=== PATIENT | male | born 1945 | race Caucasian/White ===

== ENCOUNTER 2017-05-24 12:35 | Inpatient (IN) | payer MEDICARE, MEDICAID ==
[~2017-05-24] VITALS: Ht 167.6 cm; Wt 85.3 kg
[2017-05-24] MEDS ORDERED: CLON0.5T4 PO (12:49)
[2017-05-24] MEDS ORDERED: METO-296 PO (12:49)
[2017-05-24] MEDS ORDERED: ALBUTEROL (0.083%) 2.5MG/3ML NEB HHN STA (13:10)
[2017-05-24] MEDS ORDERED: IPRATROPIUM BROMIDE (0.02%) 0.5MG/2.5ML NEB HHN STA (13:10)
[2017-05-24] MEDS ORDERED: METHYLPREDNISOLONE SOD SUCC 125 MG/2 ML VIAL IV STA (13:10)
[2017-05-24] MEDS ORDERED: MAGNESIUM 2 G PREMIX 50 ML IV ONE (13:15)
[2017-05-24] MEDS ORDERED: ONDANSETRON HCL 4MG/2ML VIAL IV ONE (14:00)
[2017-05-24] MEDS ORDERED: MORPHINE SULFATE 4 MG/ML CPJ (NOT FOR IM USE) IV ONE (14:00)
[2017-05-24 14:37] LABS: CHLORIDE 108 mEq/L (98-107); PROTHROMBIN TIME 10.7 sec
[2017-05-24 14:38] LABS: BASOPHILS % 0.3 % (0.0-2.0); EOSINOPHILS % 1.5 % (0.0-5.0); HEMATOCRIT. 40.5 % (42.0-52.0); HEMOGLOBIN. 13.5 g/dL (14.0-18.0); LYMPHOCYTES % 14.4 % (20.0-50.0); MEAN CORPUSCULAR VOLUME 87.1 fL (80.0-94.0); MEAN PLATELET VOLUME 10.1 fl (7.4-10.4); MONOCYTES % 4.4 % (2.0-8.0); NEUTROPHILS % 79.4 % (40.0-76.0); PLATELET 142 x1000/uL (130-400); RED BLOOD CELL COUNT 4.65 mill/uL (4.7-6.1); RED CELL DISTRIBUTION WIDTH 14.9 % (11.6-14.6)
[2017-05-24 14:43] LABS: CARBON DIOXIDE 25 mEq/L (21-32)
[2017-05-24] MEDS ORDERED: CEFTRIAXONE 1 G PREMIX 50 ML IV ONE (14:45)
[2017-05-24 14:46] LABS: TROPONIN I < 0.02 ng/mL (0.00-0.04)
[2017-05-24] MEDS ORDERED: SODIUM CHLORIDE 0.9% 1,000 ML IV ONE (14:49)
[2017-05-24] MEDS ORDERED: DOCUSATE SODIUM 100MG CAPSULE PO PRN (15:15)
[2017-05-24] MEDS ORDERED: LORAZEPAM 2MG/ML CPJ IV PRN (15:15)
[2017-05-24] MEDS ORDERED: IPRATROPIUM/ALBUTEROL 0.5-3(2.5)MG/3ML NEB INH PRN (15:15)
[2017-05-24] MEDS ORDERED: NITROGLYCERIN 0.4MG TABLET SL SL PRN (15:15)
[2017-05-24] MEDS ORDERED: DEXTROSE 50% WATER 50ML SYRINGE IV PRN (15:15)
[2017-05-24] MEDS ORDERED: GUAIFENESIN 200MG/10ML SUGAR FREE UDC PO PRN (15:15)
[2017-05-24] MEDS ORDERED: ACETAMINOPHEN 325MG TABLET PO PRN (15:15)
[2017-05-24] MEDS ORDERED: MAGNESIUM/ALUMINUM HYDROXIDE/SIMETHICONE 30ML UDC PO PRN (15:15)
[2017-05-24] MEDS ORDERED: DIPHENHYDRAMINE 50MG/ML VIAL IV PRN (15:15)
[2017-05-24] MEDS ORDERED: PIPERACILLIN/TAZ 3.375G PREMIX 50 ML IV SCH ×2 (15:15→21:15)
[2017-05-24] MEDS ORDERED: ONDANSETRON HCL 4MG/2ML VIAL IV PRN (15:15)
[2017-05-24] MEDS ORDERED: NA PHOS,M-B/NA PHOS,DI-BA ENEMA 118ML PR PRN (15:15)
[2017-05-24] MEDS: MORPHINE SULFATE 4 MG/ML CPJ (NOT FOR IM USE) IV PRN (17:43)
[2017-05-24] MEDS: BLOOD SUGAR DIAGNOSTIC STRIP TEST SCH ×2 (20:22→23:40)
[2017-05-24] MEDS ORDERED: PIPERACILLIN/TAZ 3.375G PREMIX 50 ML IV ONE (20:30)
[2017-05-24] MEDS: INSULIN LISPRO 100 UNITS/ML SUBCUT SCH ×2 (21:00→21:20)
[2017-05-24] MEDS ORDERED: VANCOMYCIN 1,500 MG in DEXT 5% WATER 250 ML IV SCH (21:00)
[2017-05-24] MEDS ORDERED: VANCOMYCIN 1 G PREMIX 200 ML IV NR (21:11)
[2017-05-24 21:39] VITALS: BP 126/56
[2017-05-24 22:38] VITALS: BP 126/56
[2017-05-24 23:10] LABS: CREATINE KINASE 60 IU/L (39-308); TROPONIN I < 0.02 ng/mL (0.00-0.04)
[2017-05-24] MEDS: ENOXAPARIN 40MG/0.4ML SYR SUBCUT SCH (23:38)
[2017-05-24] MEDS: FAMOTIDINE 20MG/2ML VIAL IV SCH (23:38)
[2017-05-24] MEDS: METHYLPREDNISOLONE SOD SUCC 125 MG/2 ML VIAL IV SCH (23:39)
[2017-05-25] VITALS: BP 141/67
[2017-05-25] MEDS ORDERED: ZOLP10TA2 PO (01:00)
[2017-05-25] MEDS ORDERED: TAMS-11 PO (01:00)
[2017-05-25] MEDS ORDERED: OMEG1CAP17 PO (01:00)
[2017-05-25] MEDS ORDERED: TERA2CAP53 PO (01:00)
[2017-05-25] MEDS ORDERED: OLAN10TA3 PO (01:00)
[2017-05-25] MEDS ORDERED: FERR-63 PO (01:00)
[2017-05-25] MEDS ORDERED: METF500T3 PO (01:00)
[2017-05-25] MEDS ORDERED: TRIH5TAB2 PO (01:00)
[2017-05-25] MEDS ORDERED: ESOM40CA PO (01:00)
[2017-05-25] MEDS: PIPERACILLIN/TAZ 3.375G PREMIX 50 ML IV SCH ×4 (03:32→21:20)
[2017-05-25 03:49] VITALS: BP 125/56
[2017-05-25] MEDS: BLOOD SUGAR DIAGNOSTIC STRIP TEST SCH ×4 (06:22→21:09)
[2017-05-25] MEDS: INSULIN LISPRO 100 UNITS/ML SUBCUT SCH ×4 (06:22→21:00)
[2017-05-25] MEDS: METHYLPREDNISOLONE SOD SUCC 125 MG/2 ML VIAL IV SCH (06:22)
[2017-05-25] MEDS: MORPHINE SULFATE 4 MG/ML CPJ (NOT FOR IM USE) IV PRN ×3 (06:39→15:47)
[2017-05-25 07:10] LABS: CREATINE KINASE 50 IU/L (39-308); CREATINE KINASE MB FRACTION 2.6 ng/mL (0.5-3.6); TROPONIN I < 0.02 ng/mL (0.00-0.04)
[2017-05-25 08:00] VITALS: BP 119/61
[2017-05-25] MEDS: ASPIRIN 325MG EC TABLET PO SCH (08:24)
[2017-05-25] MEDS: FAMOTIDINE 20MG/2ML VIAL IV SCH ×2 (08:24→21:20)
[2017-05-25] MEDS: ZINC SULFATE 220 MG ( 50 ) CAPSULE PO SCH (08:24)
[2017-05-25] MEDS: GUAIFENESIN/DM 600MG/30MG ER TAB 12HR PO SCH ×2 (08:25→21:08)
[2017-05-25] MEDS: TRAMADOL 50MG TABLET PO PRN ×2 (08:45→21:39)
[2017-05-25 12:18] VITALS: BP 132/85
[2017-05-25] MEDS: VANCOMYCIN 1 G PREMIX 200 ML IV SCH (12:32)
[2017-05-25 16:26] VITALS: BP 124/57
[2017-05-25] MEDS ORDERED: VANCOMYCIN 1 G PREMIX 200 ML IV SCH (18:00)
[2017-05-25] MEDS ORDERED: METHYLPREDNISOLONE SOD SUCC 40 MG/ML VIAL IV SCH (18:00)
[2017-05-25 20:00] VITALS: BP 123/45
[2017-05-25] MEDS: ENOXAPARIN 40MG/0.4ML SYR SUBCUT SCH (21:09)
[2017-05-25] MEDS: IPRATROPIUM/ALBUTEROL 0.5-3(2.5)MG/3ML NEB HHN SCH (23:55)
[2017-05-26] VITALS: BP 142/58
[2017-05-26] MEDS: PIPERACILLIN/TAZ 3.375G PREMIX 50 ML IV SCH ×4 (03:22→21:26)
[2017-05-26 04:00] VITALS: BP 130/56
[2017-05-26] MEDS: MORPHINE SULFATE 4 MG/ML CPJ (NOT FOR IM USE) IV PRN ×3 (04:21→18:46)
[2017-05-26] MEDS: IPRATROPIUM/ALBUTEROL 0.5-3(2.5)MG/3ML NEB HHN SCH ×6 (04:34→21:05)
[2017-05-26] MEDS: VANCOMYCIN 1 G PREMIX 200 ML IV SCH (05:53)
[2017-05-26 07:03] LABS: BASOPHILS % 0.2 % (0.0-2.0); EOSINOPHILS % 0.9 % (0.0-5.0); HEMATOCRIT. 37.3 % (42.0-52.0); HEMOGLOBIN. 12.2 g/dL (14.0-18.0); LYMPHOCYTES % 17.3 % (20.0-50.0); MEAN CORPUSCULAR HEMOGLOBIN 28.5 pg (28.0-32.0); MEAN CORPUSCULAR VOLUME 86.9 fL (80.0-94.0); MEAN PLATELET VOLUME 10.4 fl (7.4-10.4); MONOCYTES % 5.7 % (2.0-8.0); NEUTROPHILS % 75.9 % (40.0-76.0); PLATELET 140 x1000/uL (130-400); RED CELL DISTRIBUTION WIDTH 15.3 % (11.6-14.6)
[2017-05-26] MEDS: INSULIN LISPRO 100 UNITS/ML SUBCUT SCH ×4 (07:06→21:33)
[2017-05-26] MEDS: BLOOD SUGAR DIAGNOSTIC STRIP TEST SCH ×4 (07:06→21:00)
[2017-05-26 08:00] VITALS: BP 121/55
[2017-05-26] MEDS ORDERED: METHYLPREDNISOLONE SOD SUCC 40 MG/ML VIAL IV SCH (09:00)
[2017-05-26] MEDS: ASPIRIN 325MG EC TABLET PO SCH (09:38)
[2017-05-26] MEDS: FAMOTIDINE 20MG/2ML VIAL IV SCH ×2 (09:38→21:26)
[2017-05-26] MEDS: ZINC SULFATE 220 MG ( 50 ) CAPSULE PO SCH (09:38)
[2017-05-26] MEDS: GUAIFENESIN/DM 600MG/30MG ER TAB 12HR PO SCH ×2 (09:38→21:33)
[2017-05-26 12:00] VITALS: BP 159/67
[2017-05-26 16:00] VITALS: BP 149/72
[2017-05-26 20:00] VITALS: BP 122/53
[2017-05-26] MEDS: ENOXAPARIN 40MG/0.4ML SYR SUBCUT SCH (21:32)
[2017-05-26] MEDS: ZOLPIDEM TARTRATE 5MG TABLET PO PRN (21:39)
[2017-05-27] VITALS (7 sets, daily range): BP systolic 146–174; BP diastolic 57–72
[2017-05-27] MEDS: IPRATROPIUM/ALBUTEROL 0.5-3(2.5)MG/3ML NEB HHN SCH ×9 (00:17→23:50)
[2017-05-27] MEDS: PIPERACILLIN/TAZ 3.375G PREMIX 50 ML IV SCH ×4 (03:17→20:02)
[2017-05-27] MEDS: VANCOMYCIN 1 G PREMIX 200 ML IV SCH (05:53)
[2017-05-27] MEDS: MORPHINE SULFATE 4 MG/ML CPJ (NOT FOR IM USE) IV PRN ×4 (06:12→21:05)
[2017-05-27] MEDS: INSULIN LISPRO 100 UNITS/ML SUBCUT SCH ×4 (06:29→21:09)
[2017-05-27] MEDS: BLOOD SUGAR DIAGNOSTIC STRIP TEST SCH ×4 (06:45→20:09)
[2017-05-27] MEDS: ZINC SULFATE 220 MG ( 50 ) CAPSULE PO SCH (08:19)
[2017-05-27] MEDS: ASPIRIN 325MG EC TABLET PO SCH (08:19)
[2017-05-27] MEDS: GUAIFENESIN/DM 600MG/30MG ER TAB 12HR PO SCH ×2 (08:19→20:00)
[2017-05-27] MEDS: TRAMADOL 50MG TABLET PO PRN ×2 (08:20→20:00)
[2017-05-27] MEDS: PREDNISONE 20MG TABLET PO SCH (08:20)
[2017-05-27] MEDS: CLONIDINE 0.1MG TABLET PO PRN (08:21)
[2017-05-27] MEDS: FAMOTIDINE 20MG/2ML VIAL IV SCH ×2 (08:21→20:01)
[2017-05-27] MEDS: ENOXAPARIN 40MG/0.4ML SYR SUBCUT SCH (20:02)
[2017-05-27] MEDS: ZOLPIDEM TARTRATE 5MG TABLET PO PRN (21:55)
[2017-05-28] VITALS: BP 172/67
[2017-05-28] MEDS ORDERED: VANCOMYCIN 1 G PREMIX 200 ML IV SCH
[2017-05-28] MEDS: CLONIDINE 0.1MG TABLET PO PRN ×2 (01:07→13:35)
[2017-05-28] MEDS: PIPERACILLIN/TAZ 3.375G PREMIX 50 ML IV SCH ×2 (02:14→09:12)
[2017-05-28 04:00] VITALS: BP 177/68
[2017-05-28] MEDS: BLOOD SUGAR DIAGNOSTIC STRIP TEST SCH ×2 (06:11→11:45)
[2017-05-28] MEDS: INSULIN LISPRO 100 UNITS/ML SUBCUT SCH ×2 (06:11→13:03)
[2017-05-28] MEDS: MORPHINE SULFATE 4 MG/ML CPJ (NOT FOR IM USE) IV PRN (06:15)
[2017-05-28 08:00] VITALS: BP_SYST 128; BP_SYST 142; BP_DIAS 65; BP_DIAS 94
[2017-05-28] MEDS: IPRATROPIUM/ALBUTEROL 0.5-3(2.5)MG/3ML NEB HHN SCH ×2 (08:19→12:14)
[2017-05-28] MEDS: ASPIRIN 325MG EC TABLET PO SCH (09:12)
[2017-05-28] MEDS: FAMOTIDINE 20MG/2ML VIAL IV SCH (09:12)
[2017-05-28] MEDS: GUAIFENESIN/DM 600MG/30MG ER TAB 12HR PO SCH (09:12)
[2017-05-28] MEDS: ZINC SULFATE 220 MG ( 50 ) CAPSULE PO SCH (09:12)
[2017-05-28] MEDS: PREDNISONE 20MG TABLET PO SCH (09:22)
[2017-05-28] MEDS: TRAMADOL 50MG TABLET PO PRN (09:22)
[2017-05-28] MEDS: METRONIDAZOLE 500MG TABLET PO SCH ×2 (10:40→14:14)
[2017-05-28] MEDS ORDERED: LEVOFLOXACIN 500MG TABLET PO SCH (11:00)
[2017-05-28 12:00] VITALS: BP 174/81
[2017-05-28] MEDS ORDERED: AMLODIPINE 10MG TABLET PO SCH (15:00)
[2017-05-28 15:32] VITALS: BP 148/72
[2017-05-28] MEDS ORDERED: ATORVASTATIN CALCIUM 20MG TABLET PO SCH (21:00)
== END 2017-05-28 16:20 | DRG 137 ==
LOC: ER 13:08 → 5WST 13:13 → SUPCPDRO 15:11 → EDBEDREQ 15:15 → EDBEDREQSVC 15:15 → ENRESERV 19:03
PROVIDERS: ADMIT Internal Medicine; ATTEND Internal Medicine
DX: J69.0 Pneumonitis due to inhalation of food and vomit (principal); J96.00 Acute respiratory failure, unspecified whether with hypoxia or hypercapnia; E44.1 Mild protein-calorie malnutrition; D63.8 Anemia in other chronic diseases classified elsewhere; E11.9 Type 2 diabetes mellitus without complications; I10 Essential (primary) hypertension; E78.5 Hyperlipidemia, unspecified; E86.0 Dehydration; M25.562 Pain in left knee; Z96.652 Presence of left artificial knee joint; G89.29 Other chronic pain; J44.1 Chronic obstructive pulmonary disease with (acute) exacerbation; J98.11 Atelectasis; Z79.4 Long term (current) use of insulin; Z86.73 Personal history of transient ischemic attack (TIA), and cerebral infarction without residual deficits; Z87.891 Personal history of nicotine dependence; Z79.899 Other long term (current) drug therapy; Z68.30 Body mass index [BMI] 30.0-30.9, adult; Z88.6 Allergy status to analgesic agent; Z88.8 Allergy status to other drugs, medicaments and biological substances
CPT/HCPCS: 36415; 71010; 71250; 80048; 80053; 80061; 80202; 82550; 82553; 82962; 83036; 83605; 83690; 83880; 84484; 85025; 85610; 87040; 92610; 93005; 93306; 93970; 94640; 94644; 94664; 96361; 96365; 96375; 96376; 97163; 97166; 99291; J0696; J1650; J1815; J2060; J2270; J2405; J2543; J2920; J2930; J3370; J3475; J3490; J7040; J7060; J7512; J7611; J7620

== ENCOUNTER 2018-10-28 08:32 | Inpatient (IN) | payer MEDICARE, MEDICAID ==
[~2018-10-28] VITALS: Ht 167.6 cm; Wt 77.1 kg
[~2018-10-28 08:32] MED LIST: CLON0.5T12 PO; ESOM40CA PO; FERR-63 PO; METF500T3 PO; METO-396 PO; OLAN10TA3 PO; OMEG1CAP17 PO; TAMS-11 PO; TERA2CAP4 PO; TRIH5TAB2 PO; ZOLP10TA2 PO
[2018-10-28] MEDS ORDERED: ACETAMINOPHEN 325MG TABLET PO STA (08:55)
[2018-10-28] MEDS ORDERED: SODIUM CHLORIDE 0.9% 1,000 ML IV ONE (08:55)
[2018-10-28 09:37] LABS: HEMATOCRIT. 42.8 % (42.0-52.0); HEMOGLOBIN. 14.3 g/dL (14.0-18.0); MEAN CORPUSCULAR HEMOGLOBIN 29.8 pg (28.0-32.0); MEAN CORPUSCULAR VOLUME 89.3 fL (80.0-94.0); MEAN PLATELET VOLUME 9.9 fl (7.4-10.4); PLATELET 206 x1000/uL (130-400); RED BLOOD CELL COUNT 4.79 mill/uL (4.7-6.1); RED CELL DISTRIBUTION WIDTH 13.7 % (11.6-14.6)
[2018-10-28 09:42] LABS: CHLORIDE 101 mEq/L (98-107)
[2018-10-28 09:43] LABS: INR 1.1; PROTHROMBIN TIME 11.4 sec (9.1-11.1)
[2018-10-28 10:52] LABS: PLATELET ESTIMATE NORMAL
[2018-10-28] MEDS ORDERED: ACETAMINOPHEN 325MG TABLET PO PRN ×2 (13:15→13:45)
[2018-10-28] MEDS ORDERED: LORAZEPAM 0.5MG TABLET PO PRN (13:45)
[2018-10-28] MEDS ORDERED: CLONIDINE 0.1MG TABLET PO PRN (13:45)
[2018-10-28] MEDS ORDERED: DOCUSATE SODIUM 100MG CAPSULE PO PRN (13:45)
[2018-10-28] MEDS ORDERED: IPRATROPIUM/ALBUTEROL 0.5-3(2.5)MG/3ML NEB INH PRN (13:45)
[2018-10-28] MEDS ORDERED: GUAIFENESIN 200MG/10ML SUGAR FREE UDC PO PRN (13:45)
[2018-10-28] MEDS ORDERED: ONDANSETRON HCL 4MG/2ML INJ IV PRN (13:45)
[2018-10-28] MEDS ORDERED: MAGNESIUM/ALUMINUM HYDROXIDE/SIMETHICONE 30ML UDC PO PRN (13:45)
[2018-10-28] MEDS ORDERED: NITROGLYCERIN 0.4MG TABLET SL SL PRN (13:45)
[2018-10-28 14:00] VITALS: BP 155/74
[2018-10-28] MEDS: ENOXAPARIN 40MG/0.4ML SYR SUBCUT SCH (15:00)
[2018-10-28] MEDS: FAMOTIDINE 20MG TABLET PO SCH (15:00)
[2018-10-28 15:03] LABS: CLARITY URINE CLEAR (CLEAR); COLOR URINE YELLOW (YELLOW); KETONES URINE NEGATIVE (NEGATIVE); LEUKOCYTE ESTERASE URINE NEGATIVE (NEGATIVE); NITRITE URINE NEGATIVE (NEGATIVE); OCCULT BLOOD URINE NEGATIVE (NEGATIVE); PROTEIN URINE NEGATIVE (NEGATIVE); SPECIFIC GRAVITY URINE 1.018 (1.005-1.030); UROBILINOGEN URINE 0.2 E.U./dL (0.2-1.0)
[2018-10-28 16:00] VITALS: BP 142/65
[2018-10-28 16:37] LABS: CREATINE KINASE MB FRACTION 2.5 ng/mL (0.5-3.6)
[2018-10-28] MEDS ORDERED: DEXTROSE 50% WATER 50ML SYRINGE IV PRN (19:30)
[2018-10-28 20:00] VITALS: BP 157/67
[2018-10-28] MEDS: ATORVASTATIN CALCIUM 40MG TABLET PO SCH (20:42)
[2018-10-28] MEDS: METOPROLOL TARTRATE 25MG TABLET PO SCH (20:43)
[2018-10-28] MEDS: LISINOPRIL 20MG TABLET PO SCH (20:43)
[2018-10-28] MEDS: BLOOD SUGAR DIAGNOSTIC STRIP TEST SCH (20:44)
[2018-10-28] MEDS: TRAMADOL 50MG TABLET PO PRN (20:44)
[2018-10-28] MEDS: INSULIN LISPRO 100 UNITS/ML SUBCUT SCH (20:49)
[2018-10-28] MEDS ORDERED: FAMOTIDINE 20MG TABLET PO SCH (21:00)
[2018-10-29] VITALS: BP 96/45
[2018-10-29 01:24] LABS: CREATINE KINASE MB FRACTION 1.6 ng/mL (0.5-3.6)
[2018-10-29 04:00] VITALS: BP 118/54
[2018-10-29] MEDS: BLOOD SUGAR DIAGNOSTIC STRIP TEST SCH ×4 (07:20→22:27)
[2018-10-29 08:00] VITALS: BP 126/50
[2018-10-29] MEDS: LISINOPRIL 20MG TABLET PO SCH ×2 (08:59→21:40)
[2018-10-29] MEDS: ENOXAPARIN 40MG/0.4ML SYR SUBCUT SCH (08:59)
[2018-10-29] MEDS: FAMOTIDINE 20MG TABLET PO SCH (09:00)
[2018-10-29] MEDS ORDERED: ASPIRIN 325MG EC TABLET PO SCH (09:00)
[2018-10-29] MEDS: METOPROLOL TARTRATE 25MG TABLET PO SCH ×2 (09:00→21:40)
[2018-10-29] MEDS: INSULIN LISPRO 100 UNITS/ML SUBCUT SCH ×4 (09:04→22:30)
[2018-10-29] MEDS: TRAMADOL 50MG TABLET PO PRN ×2 (09:52→17:49)
[2018-10-29 12:00] VITALS: BP 126/43
[2018-10-29 12:42] LABS: T4 FREE 1.15 ng/dL (0.76-1.46)
[2018-10-29 16:00] VITALS: BP 121/59
[2018-10-29 16:08] LABS: CREATINE KINASE 24 IU/L (39-308)
[2018-10-29 16:09] LABS: CREATINE KINASE MB FRACTION < 1.0 ng/mL (0.5-3.6)
[2018-10-29] MEDS: CLOPIDOGREL 75MG TABLET PO SCH (17:45)
[2018-10-29 20:00] VITALS: BP 118/52
[2018-10-29] MEDS: ZOLPIDEM TARTRATE 5MG TABLET PO PRN (21:39)
[2018-10-29] MEDS: ATORVASTATIN CALCIUM 40MG TABLET PO SCH (22:25)
[2018-10-30] VITALS: BP 131/60
[2018-10-30 04:00] VITALS: BP 117/65
[2018-10-30] MEDS: BLOOD SUGAR DIAGNOSTIC STRIP TEST SCH ×4 (07:10→22:13)
[2018-10-30 07:52] LABS: CREATINE KINASE 17 IU/L (39-308)
[2018-10-30 07:53] LABS: CREATINE KINASE MB FRACTION < 1.0 ng/mL (0.5-3.6)
[2018-10-30 08:00] VITALS: BP 102/47
[2018-10-30] MEDS: ASPIRIN 81MG TABLET PO SCH (08:41)
[2018-10-30] MEDS: FAMOTIDINE 20MG TABLET PO SCH (08:41)
[2018-10-30] MEDS: METOPROLOL TARTRATE 25MG TABLET PO SCH ×2 (08:43→21:13)
[2018-10-30] MEDS: CLOPIDOGREL 75MG TABLET PO SCH (08:43)
[2018-10-30] MEDS: INSULIN LISPRO 100 UNITS/ML SUBCUT SCH ×4 (08:45→22:18)
[2018-10-30] MEDS: ENOXAPARIN 40MG/0.4ML SYR SUBCUT SCH (08:46)
[2018-10-30] MEDS: TRAMADOL 50MG TABLET PO PRN (08:54)
[2018-10-30] MEDS: LISINOPRIL 20MG TABLET PO SCH ×2 (09:00→21:14)
[2018-10-30] MEDS: HYDROCODONE/ACETAMINOPHEN 10/325MG TABLET PO PRN ×2 (11:50→17:59)
[2018-10-30 12:00] VITALS: BP 123/57
[2018-10-30 16:00] VITALS: BP 120/82
[2018-10-30 20:29] VITALS: BP 144/58
[2018-10-30] MEDS: ATORVASTATIN CALCIUM 40MG TABLET PO SCH (21:12)
[2018-10-30] MEDS: ZOLPIDEM TARTRATE 5MG TABLET PO PRN (21:13)
[2018-10-31] VITALS (7 sets, daily range): BP systolic 118–138; BP diastolic 43–69
[2018-10-31] MEDS: HYDROCODONE/ACETAMINOPHEN 10/325MG TABLET PO PRN ×3 (05:40→17:47)
[2018-10-31] MEDS: BLOOD SUGAR DIAGNOSTIC STRIP TEST SCH ×4 (06:30→20:24)
[2018-10-31] MEDS: INSULIN LISPRO 100 UNITS/ML SUBCUT SCH ×4 (07:50→20:25)
[2018-10-31] MEDS: CLOPIDOGREL 75MG TABLET PO SCH (08:28)
[2018-10-31] MEDS: ASPIRIN 81MG TABLET PO SCH (08:29)
[2018-10-31] MEDS: FAMOTIDINE 20MG TABLET PO SCH (08:29)
[2018-10-31] MEDS: METOPROLOL TARTRATE 25MG TABLET PO SCH ×3 (08:33→20:17)
[2018-10-31] MEDS: ENOXAPARIN 40MG/0.4ML SYR SUBCUT SCH (08:34)
[2018-10-31] MEDS: LISINOPRIL 20MG TABLET PO SCH ×2 (08:34→20:17)
[2018-10-31] MEDS ORDERED: REGADENOSON 0.4 MG/5 ML IV NR (15:30)
[2018-10-31] MEDS: ATORVASTATIN CALCIUM 40MG TABLET PO SCH (20:16)
[2018-10-31] MEDS: ZOLPIDEM TARTRATE 5MG TABLET PO PRN (20:19)
[2018-11-01 03:59] VITALS: BP 148/47
[2018-11-01] MEDS: BLOOD SUGAR DIAGNOSTIC STRIP TEST SCH ×3 (06:01→13:19)
[2018-11-01] MEDS: HYDROCODONE/ACETAMINOPHEN 10/325MG TABLET PO PRN ×2 (06:49→11:50)
[2018-11-01] MEDS: INSULIN LISPRO 100 UNITS/ML SUBCUT SCH ×2 (07:50→12:50)
[2018-11-01] MEDS: CLOPIDOGREL 75MG TABLET PO SCH (10:15)
[2018-11-01] MEDS: LISINOPRIL 20MG TABLET PO SCH (10:16)
[2018-11-01] MEDS: FAMOTIDINE 20MG TABLET PO SCH (10:16)
[2018-11-01] MEDS: ASPIRIN 81MG TABLET PO SCH (10:16)
[2018-11-01] MEDS: ENOXAPARIN 40MG/0.4ML SYR SUBCUT SCH (10:17)
[2018-11-01] MEDS: METOPROLOL TARTRATE 25MG TABLET PO SCH (10:18)
[2018-11-01 12:00] VITALS: BP 114/51
[2018-11-01 16:00] VITALS: BP 116/49
[2018-11-01 17:10] VITALS: BP 125/74
== END 2018-11-01 17:51 | disposition home or self-care (01) | DRG 190 ==
LOC: ER 08:32 → 6WST 11:33 → EDBEDREQ 11:37 → ENRESERV 13:00 → SUPCPDRO 13:39
PROVIDERS: ADMIT Internal Medicine; ATTEND Internal Medicine
DX: I21.4 Non-ST elevation (NSTEMI) myocardial infarction (principal); N17.0 Acute kidney failure with tubular necrosis; E11.65 Type 2 diabetes mellitus with hyperglycemia; I10 Essential (primary) hypertension; Z86.73 Personal history of transient ischemic attack (TIA), and cerebral infarction without residual deficits; F20.9 Schizophrenia, unspecified; E78.5 Hyperlipidemia, unspecified; G40.909 Epilepsy, unspecified, not intractable, without status epilepticus; R26.9 Unspecified abnormalities of gait and mobility; Z88.9 Allergy status to unspecified drugs, medicaments and biological substances; Z79.4 Long term (current) use of insulin; Z79.899 Other long term (current) drug therapy
CPT/HCPCS: 36415; 71045; 78452; 80061; 82550; 82553; 82962; 83036; 83605; 83880; 84439; 84443; 84484; 85379; 93005; 93017; 93306; 93970; 96360; 99285; A9500; J1650; J1815; J7030; J7620

== ENCOUNTER 2019-02-24 12:21 | Inpatient (IN) | payer MEDICARE, MEDICAID ==
[~2019-02-24] VITALS: Ht 167.6 cm; Wt 80.3 kg
[2019-02-24] MEDS ORDERED: SODIUM CHLORIDE 0.9% 1000ML BAG (SEPSIS BOLUS) IV ONE (14:00)
[2019-02-24 14:12] LABS: EOSINOPHILS % 3.8 % (0.0-5.0); HEMATOCRIT. 35.3 % (42.0-52.0); HEMOGLOBIN. 11.4 g/dL (14.0-18.0); LYMPHOCYTES % 28.6 % (20.0-50.0); MEAN CORPUSCULAR VOLUME 93.2 fL (80.0-94.0); MEAN PLATELET VOLUME 10.7 fl (7.4-10.4); MONOCYTES % 6.6 % (2.0-8.0); PLATELET 195 x1000/uL (130-400); RED BLOOD CELL COUNT 3.79 mill/uL (4.7-6.1); RED CELL DISTRIBUTION WIDTH 15.1 % (11.6-14.6)
[2019-02-24 14:13] LABS: CHLORIDE 116 mEq/L (98-107)
[2019-02-24 14:15] LABS: INR 1.1; PROTHROMBIN TIME 10.8 sec (9.6-11.0)
[2019-02-24 14:17] LABS: ETHANOL BLOOD < 10 mg/dL
[2019-02-24] MEDS ORDERED: INSULIN REGULAR (HUMULIN R) 300UNITS/3ML IV ONE (15:30)
[2019-02-24] MEDS ORDERED: ALBUTEROL (0.083%) 2.5MG/3ML NEB HHN ONE (15:30)
[2019-02-24] MEDS ORDERED: SODIUM BICARBONATE 8.4% 1 MEQ/ML 50ML SYR IV ONE (15:30)
[2019-02-24] MEDS ORDERED: SODIUM POLYSTYRENE SULFONATE 15 G/60 ML BOT PO ONE (15:30)
[2019-02-24] MEDS ORDERED: DEXTROSE 50% WATER 50ML SYRINGE IV ONE (15:30)
[2019-02-24] MEDS ORDERED: PIPERACILLIN/TAZ 3.375G PREMIX 50 ML IV ONE (16:00)
[2019-02-24] MEDS ORDERED: VANCOMYCIN 1 G PREMIX 200 ML IV ONE (16:00)
[2019-02-24 17:59] LABS: CLARITY URINE CLEAR (CLEAR); COLOR URINE YELLOW (YELLOW); KETONES URINE NEGATIVE (NEGATIVE); LEUKOCYTE ESTERASE URINE TRACE (NEGATIVE); NITRITE URINE NEGATIVE (NEGATIVE); OCCULT BLOOD URINE 3+ (NEGATIVE); PROTEIN URINE NEGATIVE (NEGATIVE); SPECIFIC GRAVITY URINE 1.014 (1.005-1.030); UROBILINOGEN URINE 0.2 E.U./dL (0.2-1.0)
[2019-02-24 18:14] LABS: *AMPHETAMINES SCREEN URINE NEGATIVE (NEGATIVE); *BARBITURATES SCREEN URINE NEGATIVE (NEGATIVE); *BENZODIAZEPINES SCREEN URINE PRESUMTIVE POSITIVE (NEGATIVE); *COCAINE SCREEN URINE NEGATIVE (NEGATIVE); METHADONE URINE SCREEN NEGATIVE (NEGATIVE); OPIATES URINE SCREEN PRESUMTIVE POSITIVE (NEGATIVE)
[2019-02-24 18:15] LABS: CANNABINOID URINE SCREEN NEGATIVE (NEGATIVE); PHENCYCLIDINE URINE SCREEN NEGATIVE (NEGATIVE)
[2019-02-24 21:00] VITALS: BP_SYST 134; BP_SYST 135; BP_DIAS 63
[2019-02-24] MEDS ORDERED: IPRATROPIUM/ALBUTEROL 0.5-3(2.5)MG/3ML NEB INH PRN (22:00)
[2019-02-24] MEDS ORDERED: ONDANSETRON HCL 4MG/2ML INJ IV PRN (22:00)
[2019-02-24] MEDS ORDERED: LORAZEPAM 0.5MG TABLET PO PRN (22:00)
[2019-02-24] MEDS ORDERED: GUAIFENESIN 200MG/10ML SUGAR FREE UDC PO PRN (22:00)
[2019-02-24] MEDS ORDERED: MAGNESIUM/ALUMINUM HYDROXIDE/SIMETHICONE 30ML UDC PO PRN (22:00)
[2019-02-24] MEDS ORDERED: CLONIDINE 0.1MG TABLET PO PRN (22:00)
[2019-02-24] MEDS ORDERED: DEXTROSE 50% WATER 50ML SYRINGE IV PRN (22:00)
[2019-02-24 23:00] VITALS: BP 99/54
[2019-02-24] MEDS: DEXT 5%/0.45% NACL 1000ML 1,000 ML IV SCH (23:03)
[2019-02-25] VITALS (9 sets, daily range): BP systolic 94–151; BP diastolic 43–72
[2019-02-25] MEDS ORDERED: LEVOFLOXACIN 500MG PREMIX 100 ML IV NR
[2019-02-25] MEDS: ACETAMINOPHEN 325MG TABLET PO PRN ×2 (03:04→05:07)
[2019-02-25] MEDS: DIPHENHYDRAMINE 50MG/ML VIAL IV PRN ×2 (05:07→19:24)
[2019-02-25 06:05] LABS: BASOPHILS % 0.9 % (0.0-2.0); EOSINOPHILS % 2.7 % (0.0-5.0); HEMATOCRIT. 31.7 % (42.0-52.0); HEMOGLOBIN. 10.3 g/dL (14.0-18.0); LYMPHOCYTES % 17.8 % (20.0-50.0); MEAN CORPUSCULAR VOLUME 92.1 fL (80.0-94.0); MONOCYTES % 7.3 % (2.0-8.0); NEUTROPHILS % 71.3 % (40.0-76.0); PLATELET 148 x1000/uL (130-400); RED BLOOD CELL COUNT 3.45 mill/uL (4.7-6.1); RED CELL DISTRIBUTION WIDTH 14.9 % (11.6-14.6)
[2019-02-25] MEDS: BLOOD SUGAR DIAGNOSTIC STRIP TEST SCH ×4 (07:52→21:00)
[2019-02-25] MEDS: DEXT 5%/0.45% NACL 1000ML 1,000 ML IV SCH (08:27)
[2019-02-25] MEDS: TAMSULOSIN HCL 0.4MG SR CAPSULE PO SCH (08:27)
[2019-02-25] MEDS: INSULIN LISPRO 100 UNITS/ML SUBCUT SCH ×4 (08:32→21:58)
[2019-02-25] MEDS ORDERED: SODIUM POLYSTYRENE SULFONATE 15 G/60 ML BOT PO NR (13:00)
[2019-02-25] MEDS: HYDROCODONE/ACETAMINOPHEN 5/325MG TABLET PO PRN ×2 (15:05→19:04)
[2019-02-25] MEDS: OLANZAPINE 10MG TABLET PO SCH (17:00)
[2019-02-25] MEDS ORDERED: LEVOFLOXACIN 250MG PREMIX 50 ML IV SCH (23:00)
[2019-02-26] VITALS (7 sets, daily range): BP systolic 125–140; BP diastolic 58–72
[2019-02-26] MEDS: HYDROCODONE/ACETAMINOPHEN 5/325MG TABLET PO PRN ×3 (00:19→11:19)
[2019-02-26] MEDS: DEXT 5%/0.45% NACL 1000ML 1,000 ML IV SCH ×2 (03:56→08:28)
[2019-02-26 06:37] LABS: BASOPHILS % 1.2 % (0.0-2.0); HEMATOCRIT. 35.3 % (42.0-52.0); HEMOGLOBIN. 11.4 g/dL (14.0-18.0); LYMPHOCYTES % 29.8 % (20.0-50.0); MEAN CORPUSCULAR HEMOGLOBIN 29.7 pg (28.0-32.0); MEAN CORPUSCULAR VOLUME 91.6 fL (80.0-94.0); MEAN PLATELET VOLUME 10.4 fl (7.4-10.4); MONOCYTES % 6.8 % (2.0-8.0); NEUTROPHILS % 57.2 % (40.0-76.0); PLATELET 166 x1000/uL (130-400); RED BLOOD CELL COUNT 3.85 mill/uL (4.7-6.1); RED CELL DISTRIBUTION WIDTH 14.6 % (11.6-14.6)
[2019-02-26] MEDS: OLANZAPINE 10MG TABLET PO SCH (08:22)
[2019-02-26] MEDS: TAMSULOSIN HCL 0.4MG SR CAPSULE PO SCH (08:22)
[2019-02-26] MEDS: BLOOD SUGAR DIAGNOSTIC STRIP TEST SCH ×3 (08:26→17:59)
[2019-02-26] MEDS: INSULIN LISPRO 100 UNITS/ML SUBCUT SCH ×3 (08:26→18:12)
[2019-02-26] MEDS: DIPHENHYDRAMINE 50MG/ML VIAL IV PRN (09:48)
== END 2019-02-26 21:41 | disposition home or self-care (01) | DRG 469 ==
LOC: ER 12:27 → 5EST 15:45 → EDBEDREQTM 15:49 → EDBEDREQ 15:49 → ENRESERV 19:34
PROVIDERS: ADMIT Internal Medicine; ATTEND Internal Medicine
DX: N17.9 Acute kidney failure, unspecified (principal); G93.41 Metabolic encephalopathy; E11.22 Type 2 diabetes mellitus with diabetic chronic kidney disease; E87.5 Hyperkalemia; F20.0 Paranoid schizophrenia; E78.00 Pure hypercholesterolemia, unspecified; I12.9 Hypertensive chronic kidney disease with stage 1 through stage 4 chronic kidney disease, or unspecified chronic kidney disease; N18.9 Chronic kidney disease, unspecified; K57.30 Diverticulosis of large intestine without perforation or abscess without bleeding; N40.0 Benign prostatic hyperplasia without lower urinary tract symptoms; I67.82 Cerebral ischemia; Z88.8 Allergy status to other drugs, medicaments and biological substances
CPT/HCPCS: 36415; 71045; 74176; 80048; 80305; 80320; 82962; 83605; 83735; 83880; 84100; 84145; 84484; 93005; 93970; 97162; 97535; J1200; J1815; J1956; J2543; J3370; J3490; J7030; J7611; G0480

== ENCOUNTER 2021-06-22 05:57 | Emergency (ER) | payer MEDICARE, MEDICAID ==
[~2021-06-22] VITALS: Ht 167.6 cm; Wt 77.0 kg
[~2021-06-22 05:57] MED LIST changes: -CLON0.5T12 PO; +CLON0.5T4 PO; -TRIH5TAB2 PO; +TRIH5TAB4 PO
[2021-06-22] MEDS ORDERED: MORPHINE SULFATE 4 MG/ML CPJ (NOT FOR IM USE) IV ONE (06:45)
[2021-06-22] MEDS ORDERED: ONDANSETRON HCL 4MG/2ML INJ IV ONE (06:45)
[2021-06-22 07:56] LABS: CLARITY URINE CLEAR (CLEAR); COLOR URINE YELLOW (YELLOW); KETONES URINE NEGATIVE (NEGATIVE); LEUKOCYTE ESTERASE URINE NEGATIVE (NEGATIVE); NITRITE URINE NEGATIVE (NEGATIVE); OCCULT BLOOD URINE NEGATIVE (NEGATIVE); PROTEIN URINE NEGATIVE (NEGATIVE); SPECIFIC GRAVITY URINE 1.018 (1.005-1.030); UROBILINOGEN URINE 0.2 E.U./dL (0.2-1.0)
[2021-06-22 08:12] LABS: BASOPHILS % 0.7 % (0.0-2.0); EOSINOPHILS % 3.2 % (0.0-5.0); LYMPHOCYTES % 17.7 % (20.0-50.0); MEAN CORPUSCULAR HEMOGLOBIN 29.2 pg (28.0-32.0); MEAN CORPUSCULAR VOLUME 87.3 fL (80.0-94.0); MEAN PLATELET VOLUME 9.4 fl (7.4-10.4); MONOCYTES % 6.1 % (2.0-8.0); NEUTROPHILS % 72.3 % (40.0-76.0); PLATELET 199 x1000/uL (130-400); RED BLOOD CELL COUNT 4.12 mill/uL (4.7-6.1); RED CELL DISTRIBUTION WIDTH 14.4 % (11.6-14.6)
[2021-06-22 08:17] LABS: CHLORIDE 110 mEq/L (98-107)
[2021-06-22 08:22] LABS: INR 1.1; PROTHROMBIN TIME 11.9 sec (9.6-11.0)
[2021-06-22] MEDS ORDERED: IOHEXOL-300 100 ML BOTTLE ONE (12:46)
[2021-06-22 14:17] VITALS: BP 145/65
== END 2021-06-22 14:19 | disposition home health service (06) ==
LOC: ER 05:57
DX: R07.81 Pleurodynia (principal); M25.532 Pain in left wrist; M54.89 Other dorsalgia; R10.32 Left lower quadrant pain; R10.12 Left upper quadrant pain; Z91.81 History of falling; E11.9 Type 2 diabetes mellitus without complications; G40.909 Epilepsy, unspecified, not intractable, without status epilepticus; F20.9 Schizophrenia, unspecified; J44.9 Chronic obstructive pulmonary disease, unspecified; Z86.73 Personal history of transient ischemic attack (TIA), and cerebral infarction without residual deficits; I10 Essential (primary) hypertension
CPT/HCPCS: 36415; 70450; 71045; 71260; 73110; 74177; 80053; 81003; 85025; 85610; 93005; 96374; 96375; 99285; J2270; J2405; Q9967